=== PATIENT | male | born 1950 | race Caucasian/White ===

== ENCOUNTER 2020-09-15 10:18 | Outpatient (REF) | payer MEDICARE, SELFPAY ==
[2020-09-15 11:26] LABS: Estimated Average Glucose 140 mg/dL; Hemoglobin A1c % 6.5 %
[2020-09-15 11:54] LABS: Alanine Aminotransferase 18 U/L (0-40); Albumin Level 4.6 g/dL (3.5-5.0); Alkaline Phosphatase 60 U/L (39-117); Aspartate Amino Transferase 22 U/L (5-37); Bilirubin Direct 0.2 mg/dL (0.0-0.5); Bilirubin Total 0.5 mg/dL (0.0-1.0); Cholesterol 155 mg/dL; Glucose Fasting 133 mg/dL (60-99); HDL Cholesterol 47 mg/dL; LDL Cholesterol Calculated 69 mg/dl; Total Protein 7.1 g/dL (6.5-8.0); Triglycerides 199 mg/dL
[2020-09-15 13:39] LABS: Reflex LDLD? No
== END 2020-09-15 10:19 | disposition home or self-care (01) ==
LOC: HO.LNP 10:18
PROVIDERS: PCP Internal Medicine; Visit Provider Internal Medicine
DX: R73.03 Prediabetes (principal); E78.00 Pure hypercholesterolemia, unspecified
CPT/HCPCS: 80061; 80076; 82947; 83036

== ENCOUNTER 2020-10-14 12:19 | Outpatient (REF) | payer MEDICARE, SELFPAY ==
[2020-10-14 14:17] LABS: Blood Urea Nitrogen 10 mg/dL (9-16); Estimated Glomerular Filt Rate > 60
[2020-10-14 14:40] LABS: PSA,Total (Free>4and<10) 0.07 ng/mL (0.00-4.00)
== END 2020-10-14 12:20 | disposition home or self-care (01) ==
LOC: HO.10HDLNP 12:19
PROVIDERS: Visit Provider Internal Medicine
DX: Z12.5 Encounter for screening for malignant neoplasm of prostate (principal); R73.03 Prediabetes
CPT/HCPCS: 82565; 84153; 84520

== ENCOUNTER 2021-09-22 10:59 | Outpatient (REF) | payer MEDICARE, SELFPAY ==
[2021-09-22 11:04] LABS: MANUAL DIFF FLAG NO
[2021-09-22 11:21] LABS: Basophils Absolute Auto 0.1 X10*3/uL (0.0-0.2); Basophils Percent Auto 0.7 % (0-2); Eosinophils Absolute Auto 0.5 X10*3/uL (0.0-0.4); Eosinophils Percent Auto 4.6 % (0-4); Hematocrit 50.5 % (42.0-52.0); Hemoglobin 16.6 g/dl (14.0-18.0); Imm Gran Abs Auto 0.07 X10*3/uL (0.00-0.03); Imm Gran Pct Auto 0.7 % (0.0-0.4); Lymphocytes Percent Auto 30.6 % (20-40); Mean Corpuscular HGB Conc 32.9 g/dl (31.0-36.0); Mean Corpuscular Hemoglobin 30.5 pg (27.0-33.0); Mean Corpuscular Volume 92.7 fL (80.0-98.0); Mean Platelet Volume 12.1 fL (9.4-12.4); Monocytes Absolute Auto 0.9 X10*3/uL (0.1-1.2); Monocytes Percent Auto 9.5 % (2-11); Neutrophils Absolute Auto 5.2 x10*3/uL (2.0-8.3); Neutrophils Percent Auto 53.9 % (45-73); Platelet Count 178 X10*3/uL (160-400); Red Blood Count 5.45 X10*6/uL (4.60-5.80); Red Cell Distribution Width 15.1 % (11.0-16.0); White Blood Count 9.7 X10*3/uL (4.8-10.8)
[2021-09-22 11:38] LABS: Estimated Average Glucose 120 mg/dL; Hemoglobin A1c % 5.8 %
[2021-09-22 11:47] LABS: Alanine Aminotransferase 27 U/L (0-40); Albumin Level 4.7 g/dL (3.5-5.0); Alkaline Phosphatase 57 U/L (39-117); Anion Gap 17 (12-20); Aspartate Amino Transferase 30 U/L (5-37); Bilirubin Total 0.7 mg/dL (0.0-1.0); Blood Urea Nitrogen 15 mg/dL (9-16); Calcium 10.2 mg/dL (8.4-10.2); Carbon Dioxide 27 mmol/L (22-29); Chloride 101 mmol/L (96-108); Cholesterol 190 mg/dL; Estimated Glomerular Filt Rate > 60; Glucose Fasting 119 mg/dL (60-99); HDL Cholesterol 48 mg/dL; LDL Cholesterol Calculated 110 mg/dl; Potassium 4.5 mmol/L (3.3-5.1); Sodium 140 mmol/L (135-145); Total Protein 7.7 g/dL (6.5-8.0); Triglycerides 164 mg/dL
[2021-09-22 12:11] LABS: PSA,Total (Free>4and<10) 0.09 ng/mL (0.00-4.00)
[2021-09-22 12:24] LABS: Appearance Urine HAZY; Color Urine YELLOW; Glucose Urine UA NEG (NEG); Leukocyte Esterase Urine NEG (NEG); Nitrite Urine NEG (NEG); Urine Blood TRACE (NEG); Urine Ketones 5 MG/DL (NEG); Urine Protein 2+ MG/DL (NEG-TRACE)
[2021-09-22 12:50] LABS: Microalbum/Creatinine Ratio Ur 259.5 ug/mg cr
[2021-09-22 13:44] LABS: Granular Casts Urine 0-2 /LPF; Hyaline Casts Urine 0-2 /LPF; Mucus Urine 1+ /LPF
== END 2021-09-22 11:00 | disposition home or self-care (01) ==
LOC: HO.LNP 10:59
PROVIDERS: PCP Internal Medicine; Visit Provider Internal Medicine
DX: Z12.5 Encounter for screening for malignant neoplasm of prostate (principal); E78.00 Pure hypercholesterolemia, unspecified; E11.9 Type 2 diabetes mellitus without complications; I10 Essential (primary) hypertension
CPT/HCPCS: 80053; 80061; 81001; 81003; 82043; 83036; 84153; 85025

== ENCOUNTER 2022-03-26 10:34 | Outpatient (REF) | payer MEDICARE, SELFPAY ==
[2022-03-26 11:24] LABS: Alanine Aminotransferase 19 U/L (0-40); Albumin Level 4.8 g/dL (3.5-5.0); Alkaline Phosphatase 51 U/L (39-117); Aspartate Amino Transferase 24 U/L (5-37); Bilirubin Direct 0.2 mg/dL (0.0-0.5); Bilirubin Total 0.6 mg/dL (0.0-1.0); Cholesterol 166 mg/dL; Glucose Random 108 mg/dL (60-115); HDL Cholesterol 48 mg/dL; LDL Cholesterol Calculated 91 mg/dl; Total Protein 7.5 g/dL (6.5-8.0); Triglycerides 136 mg/dL
[2022-03-26 11:28] LABS: Estimated Average Glucose 114 mg/dL; Hemoglobin A1C 148.3577 umol/L; Hemoglobin A1c % 5.6 %
[2022-03-26 13:29] LABS: Reflex LDLD? No
== END 2022-03-26 10:35 | disposition home or self-care (01) ==
LOC: HO.LNP 10:34
PROVIDERS: Visit Provider Internal Medicine
DX: R73.03 Prediabetes (principal); E78.00 Pure hypercholesterolemia, unspecified
CPT/HCPCS: 80061; 80076; 82947; 83036

== ENCOUNTER 2022-07-02 10:46 | Outpatient (REF) | payer MEDICARE, SELFPAY ==
[2022-07-02 11:24] LABS: Alanine Aminotransferase 23 U/L (0-40); Albumin Level 4.7 g/dL (3.5-5.0); Alkaline Phosphatase 67 U/L (39-117); Aspartate Amino Transferase 27 U/L (5-37); Bilirubin Direct < 0.2 mg/dL (0.0-0.5); Bilirubin Total 0.5 mg/dL (0.0-1.0); Cholesterol 164 mg/dL; Glucose Fasting 93 mg/dL (60-99); HDL Cholesterol 48 mg/dL; LDL Cholesterol Calculated 90 mg/dl; Total Protein 6.9 g/dL (6.5-8.0); Triglycerides 132 mg/dL
[2022-07-02 11:46] LABS: Estimated Average Glucose 120 mg/dL; Hemoglobin A1C 161.5997 umol/L; Hemoglobin A1c % 5.8 %
[2022-07-02 15:17] LABS: Reflex LDLD? No
== END 2022-07-02 10:47 | disposition home or self-care (01) ==
LOC: HO.LNP 10:46
PROVIDERS: Visit Provider Internal Medicine
DX: E11.9 Type 2 diabetes mellitus without complications (principal); E78.00 Pure hypercholesterolemia, unspecified
CPT/HCPCS: 80061; 80076; 82947; 83036

== ENCOUNTER 2022-09-24 11:19 | Outpatient (REF) | payer MEDICARE, SELFPAY ==
[2022-09-24 11:25] LABS: MANUAL DIFF FLAG NO
[2022-09-24 11:31] LABS: Basophils Absolute Auto 0.1 X10*3/uL (0.0-0.2); Basophils Percent Auto 1.1 % (0-2); Eosinophils Absolute Auto 0.5 X10*3/uL (0.0-0.4); Eosinophils Percent Auto 6.5 % (0-4); Hematocrit 46.5 % (42.0-52.0); Hemoglobin 15.4 g/dl (14.0-18.0); Imm Gran Pct Auto 1.2 % (0.0-0.4); Lymphocytes Absolute Auto 2.4 X10*3/uL (1.2-4.9); Lymphocytes Percent Auto 28.7 % (20-40); Mean Corpuscular HGB Conc 33.1 g/dl (31.0-36.0); Mean Corpuscular Hemoglobin 31.4 pg (27.0-33.0); Mean Corpuscular Volume 94.7 fL (80.0-98.0); Mean Platelet Volume 11.8 fL (9.4-12.4); Monocytes Percent Auto 12.3 % (2-11); Neutrophils Absolute Auto 4.2 x10*3/uL (2.0-8.3); Neutrophils Percent Auto 50.2 % (45-73); Platelet Count 172 X10*3/uL (160-400); Red Blood Count 4.91 X10*6/uL (4.60-5.80); Red Cell Distribution Width 14.6 % (11.0-16.0); White Blood Count 8.4 X10*3/uL (4.8-10.8)
[2022-09-24 11:34] LABS: Appearance Urine Clear; Color Urine Dark Yellow; Glucose Urine UA Negative (Negative); Leukocyte Esterase Urine Negative (Negative); Nitrite Urine Negative (Negative); PH 5.5 (5.0-9.0); Urine Blood Negative (Negative); Urine Ketones Trace mg/dL (Negative); Urine Protein Negative (Neg-Trace)
[2022-09-24 11:48] LABS: Alanine Aminotransferase 27 U/L (0-40); Albumin Level 4.7 g/dL (3.5-5.0); Alkaline Phosphatase 63 U/L (39-117); Anion Gap 14 (12-20); Aspartate Amino Transferase 24 U/L (5-37); Bilirubin Total 0.7 mg/dL (0.0-1.0); Blood Urea Nitrogen 27 mg/dL (9-16); Calcium 9.8 mg/dL (8.4-10.2); Carbon Dioxide 27 mmol/L (22-29); Chloride 104 mmol/L (96-108); Cholesterol 158 mg/dL; Estimated Glomerular Filt Rate > 60; Glucose Fasting 92 mg/dL (60-99); HDL Cholesterol 41 mg/dL; LDL Cholesterol Calculated 90 mg/dl; Potassium 4.9 mmol/L (3.3-5.1); Sodium 140 mmol/L (135-145); Triglycerides 137 mg/dL
[2022-09-24 11:50] LABS: Bacteria Urine None Seen (None Seen); Estimated Average Glucose 120 mg/dL; Hemoglobin A1c % 5.8 %; RBC Urine 0-2 /HPF (0-2); Squamous Epithelial Cell Urine 0-2 /HPF (0-2); WBC Urine 0-5 /HPF (0-5)
[2022-09-24 12:35] LABS: Creatinine Urine 157.95 mg/dL; Microalbum/Creatinine Ratio Ur 10.1 ug/mg cr
== END 2022-09-24 11:20 | disposition home or self-care (01) ==
LOC: HO.LNP 11:19
PROVIDERS: PCP Internal Medicine; Visit Provider Internal Medicine
DX: E78.00 Pure hypercholesterolemia, unspecified (principal); E11.9 Type 2 diabetes mellitus without complications; I10 Essential (primary) hypertension; Z12.5 Encounter for screening for malignant neoplasm of prostate
CPT/HCPCS: 80053; 80061; 81001; 82043; 83036; 84153; 85025

== ENCOUNTER 2022-12-02 11:12 | Outpatient (REF) | payer MEDICARE, SELFPAY ==
[2022-12-02 13:34] LABS: Blood Urea Nitrogen 18 mg/dL (9-16); Estimated Glomerular Filt Rate > 60
== END 2022-12-02 11:13 | disposition home or self-care (01) ==
LOC: HO.LNP 11:12
PROVIDERS: Visit Provider Internal Medicine
DX: R79.9 Abnormal finding of blood chemistry, unspecified (principal)
CPT/HCPCS: 82565; 84520

== ENCOUNTER 2023-04-07 10:22 | Outpatient (REF) | payer MEDICARE, SELFPAY ==
[2023-04-07 10:50] LABS: Estimated Average Glucose 123 mg/dL; Hemoglobin A1c % 5.9 % (<6.0)
[2023-04-07 11:09] LABS: Alanine Aminotransferase 24 U/L (0-40); Albumin Level 4.6 g/dL (3.5-5.0); Alkaline Phosphatase 67 U/L (39-117); Aspartate Amino Transferase 26 U/L (5-37); Bilirubin Direct 0.3 mg/dL (0.0-0.5); Bilirubin Total 0.6 mg/dL (0.0-1.0); Glucose Fasting 109 mg/dL (60-99); Total Protein 7.4 g/dL (6.5-8.0)
[2023-04-07 11:10] LABS: Cholesterol 147 mg/dL (<200); HDL Cholesterol 40 mg/dL (>40); LDL Cholesterol Calculated 70 mg/dL (<100); Triglycerides 187 mg/dL (<150)
[2023-04-07 11:23] LABS: Reflex LDLD? No
== END 2023-04-07 10:23 | disposition home or self-care (01) ==
LOC: HO.LNP 10:22
PROVIDERS: Visit Provider Internal Medicine
DX: R73.03 Prediabetes (principal); E78.00 Pure hypercholesterolemia, unspecified
CPT/HCPCS: 80061; 80076; 82947; 83036

== ENCOUNTER 2023-09-29 11:43 | Outpatient (REF) | payer MEDICARE, SELFPAY ==
[2023-09-29 11:49] LABS: MANUAL DIFF FLAG NO
[2023-09-29 12:10] LABS: Appearance Urine Clear; Color Urine Dark Yellow; Glucose Urine UA Negative (Negative); Leukocyte Esterase Urine Negative (Negative); Nitrite Urine Negative (Negative); PH 5.5 (5.0-9.0); Specific Gravity - Urine 1.025 (1.005-1.025); Urine Blood Negative (Negative); Urine Ketones Negative (Negative); Urine Protein Negative (Neg-Trace)
[2023-09-29 12:13] LABS: Bacteria Urine None Seen (None Seen); RBC Urine 0-2 /HPF (0-2); Squamous Epithelial Cell Urine 0-2 /HPF (0-2); WBC Urine 0-5 /HPF (0-5)
[2023-09-29 12:30] LABS: Basophils Absolute Auto 0.1 X10*3/uL (0.0-0.2); Basophils Percent Auto 1.1 % (0-2); Eosinophils Absolute Auto 0.7 X10*3/uL (0.0-0.4); Eosinophils Percent Auto 8.8 % (0-4); Hematocrit 45.5 % (42.0-52.0); Imm Gran Abs Auto 0.06 X10*3/uL (0.00-0.03); Imm Gran Pct Auto 0.8 % (0.0-0.4); Lymphocytes Absolute Auto 2.3 X10*3/uL (1.2-4.9); Lymphocytes Percent Auto 29.6 % (20-40); Mean Corpuscular Hemoglobin 31.3 pg (27.0-33.0); Mean Corpuscular Volume 94.8 fL (80.0-98.0); Mean Platelet Volume 11.5 fL (9.4-12.4); Monocytes Absolute Auto 0.8 X10*3/uL (0.1-1.2); Monocytes Percent Auto 10.7 % (2-11); Neutrophils Absolute Auto 3.9 x10*3/uL (2.0-8.3); Platelet Count 184 X10*3/uL (160-400); Red Cell Distribution Width 14.6 % (11.0-16.0); White Blood Count 7.9 X10*3/uL (4.8-10.8)
[2023-09-29 12:38] LABS: Estimated Average Glucose 131 mg/dL; Hemoglobin A1c % 6.2 % (<6.0)
[2023-09-29 12:43] LABS: Alanine Aminotransferase 25 U/L (0-40); Albumin Level 4.5 g/dL (3.5-5.0); Alkaline Phosphatase 70 U/L (39-117); Anion Gap 16 (12-20); Aspartate Amino Transferase 29 U/L (5-37); Bilirubin Total 0.5 mg/dL (0.0-1.0); Blood Urea Nitrogen 17 mg/dL (9-16); Calcium 10.1 mg/dL (8.4-10.2); Carbon Dioxide 24 mmol/L (22-29); Chloride 106 mmol/L (96-108); Cholesterol 146 mg/dL (<200); Estimated Glomerular Filt Rate > 60; Glucose Random 119 mg/dL (60-115); HDL Cholesterol 44 mg/dL (>40); LDL Cholesterol Calculated 69 mg/dL (<100); Potassium 4.5 mmol/L (3.3-5.1); Sodium 141 mmol/L (135-145); Total Protein 7.3 g/dL (6.5-8.0); Triglycerides 169 mg/dL (<150)
[2023-09-29 12:48] LABS: Creatinine Urine 161.48 mg/dL; Microalbum/Creatinine Ratio Ur 4.9 ug/mg cr (<30)
[2023-09-29 12:57] LABS: PSA,Total (Free>4and<10) < 0.10 ng/mL (0.00-4.00)
== END 2023-09-29 11:44 | disposition home or self-care (01) ==
LOC: HO.LNP 11:43
PROVIDERS: Visit Provider Internal Medicine
DX: E11.9 Type 2 diabetes mellitus without complications (principal); I10 Essential (primary) hypertension; E78.00 Pure hypercholesterolemia, unspecified; Z12.5 Encounter for screening for malignant neoplasm of prostate
CPT/HCPCS: 80053; 80061; 81001; 82043; 82570; 83036; 84153; 85025

== ENCOUNTER 2024-04-06 10:48 | Outpatient (REF) | payer MEDICARE, SELFPAY ==
[2024-04-06 12:13] LABS: Estimated Average Glucose 123 mg/dL; Hemoglobin A1C 195.1834 umol/L; Hemoglobin A1c % 5.9 % (<6.0); Total Hemoglobin (HGBA1C) 4721.5614 umol/L
[2024-04-06 12:16] LABS: Alanine Aminotransferase 36 U/L (0-40); Albumin Level 4.6 g/dL (3.5-5.0); Aspartate Amino Transferase 46 U/L (5-37); Bilirubin Direct 0.2 mg/dL (0.0-0.5); Bilirubin Total 0.5 mg/dL (0.0-1.0); Cholesterol 142 mg/dL (<200); Glucose Fasting 115 mg/dL (60-99); HDL Cholesterol 45 mg/dL (>40); LDL Cholesterol Calculated 67 mg/dL (<100); Total Protein 7.3 g/dL (6.5-8.0); Triglycerides 150 mg/dL (<150)
[2024-04-06 12:39] LABS: Alkaline Phosphatase 81 U/L (39-117)
[2024-04-06 13:35] LABS: Reflex LDLD? No
== END 2024-04-06 10:49 | disposition home or self-care (01) ==
LOC: HO.LNP 10:48
PROVIDERS: Visit Provider Internal Medicine
DX: R73.09 Other abnormal glucose (principal); E78.00 Pure hypercholesterolemia, unspecified
CPT/HCPCS: 80061; 80076; 82947; 83036

== ENCOUNTER 2024-10-02 10:44 | Outpatient (REF) | payer MEDICARE, SELFPAY ==
[2024-10-02 10:48] LABS: MANUAL DIFF FLAG NO
[2024-10-02 11:04] LABS: Appearance Urine Clear; Color Urine Dark Yellow; Glucose Urine UA Negative (Negative); Leukocyte Esterase Urine Negative (Negative); Nitrite Urine Negative (Negative); PH 5.5 (5.0-9.0); Specific Gravity - Urine 1.025 (1.005-1.025); Urine Blood Negative (Negative); Urine Ketones Trace mg/dL (Negative); Urine Protein Negative (Neg-Trace)
[2024-10-02 11:05] LABS: Basophils Absolute Auto 0.1 X10*3/uL (0.0-0.2); Eosinophils Absolute Auto 0.5 X10*3/uL (0.0-0.4); Eosinophils Percent Auto 5.4 % (0-4); Hematocrit 45.8 % (42.0-52.0); Hemoglobin 15.2 g/dl (14.0-18.0); Imm Gran Pct Auto 1.1 % (0.0-0.4); Lymphocytes Absolute Auto 2.8 X10*3/uL (1.2-4.9); Lymphocytes Percent Auto 29.5 % (20-40); Mean Corpuscular HGB Conc 33.2 g/dl (31.0-36.0); Mean Corpuscular Hemoglobin 31.1 pg (27.0-33.0); Mean Corpuscular Volume 93.7 fL (80.0-98.0); Mean Platelet Volume 11.3 fL (9.4-12.4); Monocytes Percent Auto 10.7 % (2-11); Neutrophils Absolute Auto 4.9 x10*3/uL (2.0-8.3); Neutrophils Percent Auto 52.3 % (45-73); Platelet Count 167 X10*3/uL (160-400); Red Blood Count 4.89 X10*6/uL (4.60-5.80); Red Cell Distribution Width 14.3 % (11.0-16.0); White Blood Count 9.4 X10*3/uL (4.8-10.8)
[2024-10-02 11:20] LABS: Estimated Average Glucose 128 mg/dL; Hemoglobin A1C 166.6116 umol/L; Hemoglobin A1c % 6.1 % (<6.0); Total Hemoglobin (HGBA1C) 3890.5417 umol/L
[2024-10-02 11:24] LABS: Bacteria Urine None Seen (None Seen); Hyaline Casts Urine 0-2 /LPF (0-2); RBC Urine 0-2 /HPF (0-2); Squamous Epithelial Cell Urine 0-2 /HPF (0-2); WBC Urine 0-5 /HPF (0-5)
[2024-10-02 11:56] LABS: Alanine Aminotransferase 30 U/L (0-40); Albumin Level 4.6 g/dL (3.5-5.0); Anion Gap 16 (12-20); Aspartate Amino Transferase 51 U/L (5-37); Bilirubin Total 0.5 mg/dL (0.0-1.0); Blood Urea Nitrogen 16 mg/dL (9-16); Calcium 9.8 mg/dL (8.4-10.2); Carbon Dioxide 26 mmol/L (22-29); Chloride 106 mmol/L (96-108); Cholesterol 154 mg/dL (<200); Estimated Glomerular Filt Rate > 60; Glucose Fasting 116 mg/dL (60-99); HDL Cholesterol 48 mg/dL (>40); LDL Cholesterol Calculated 66 mg/dL (<100); Potassium 4.6 mmol/L (3.3-5.1); Sodium 143 mmol/L (135-145); Total Protein 7.3 g/dL (6.5-8.0); Triglycerides 201 mg/dL (<150)
--- OUTSIDE RECORDS SUMMARY | 2024-10-02 12:08 | XMS_ITS ---
Author Organization Deuce Lyon MD Address [address] [place] [phone] Care Team Providers Care Spring Tester Name Role Phone Sonali Deuce Primary Care Provider REASON FOR VISIT RF Doxy Medications Medication SIG (Take, Route, Frequency, Duration) Notes Start Date End Date Status Doxycycline Hyclate 100 MG 1 capsule Ora lly Twice a day for 1 days 10/06/2023 Active Encounters Encounter Location Date Provider Diagnosis Deuce Lyon MD [address] [place] [phone] 10/02/2024 Deuce Lyon Bitten or stung by nonvenomous insect and other nonvenomous arthropods, initial encounter W57.XXXA Assessments Encounter Date Diagnosis (ICD Code) Assessment Notes Treatment Notes Treatment Clinical Notes Section Notes 10/02/2024 Bitten or stung by nonvenomous insect and other nonvenomous arthropods, initial encounter (ICD-10 - W57.XXXA) Plan Of Treatment Medication Medication Name Sig Start Date Stop Date Notes Doxycycline Hyclate 100 MG 1 capsule Ora lly Twice a day for 1 days 10/06/2023 Next Appt Details Provider Name:Deucebrittani Luis ier, 10/09/2024 01:30:00 PM, [address] [place] [address], [address], [place], [place], [phone], Progress Notes * Shashank ARROYO WDOB:[birth year] (74 yo M)Acc No.[id number]:10/02/2024 Patient:?Shashank ARROYO W :1950???Age:74 Y???Sex:Male Address:[address] [place] [address], [place] [address] * Refills? Refill Doxycycline Hyclate Capsule, 100 MG, Orally, 2 Capsule, 1 capsule, Twice a day, 1 days, Refills=5 * true * Date:? Generated for Ricco peck/Manjinder/eTransmitting on:?10/02/2024 12:08 PM EDT
--- OUTSIDE RECORDS SUMMARY | 2024-10-02 12:08 | XMS_ITS ---
Author Organization Deuce Lyon MD Address [address] [place] [phone] Care Team Providers Care Photographer Scientific Name Role Phone VernellDeuce mays Primary Care Provider Results Component Value Reference Range Notes Complete Blood Count Auto Di ff (Not yet reviewed by provider) Interpretation: Performing Lab:[facility], [address] [place] [phone] Notes/Report: White Blood Count 9.4 4.8-10.8 X10*3/uL Red Blood Count 4.89 4.60-5.80 X10*6/uL Hemoglobin 15.2 14.0-18.0 g/dl Hematocrit 45.8 42.0-52.0 % Mean Corpuscular Volume 93.7 80.0-98.0 fL Mean Corpuscular Hemoglobin 31.1 27.0-33.0 pg Mean Corpuscular HGB Conc 33.2 31.0-36.0 g/dl Red Cell Distribution Width 14.3 11.0-16.0 % Platelet Count 167 160-400 X10*3/uL Mean Platelet Volume 11.3 9.4-12.4 fL Neutrophils Percent Auto 52.3 45-73 % Imm Gran Pct Auto 1.1 0.0-0.4 % Lymphocytes Percent Auto 29.5 20-40 % Monocytes Percent Auto 10.7 2-11 % Eosinophils Percent Auto 5.4 0-4 % Basophils Percent Auto 1.0 0-2 % NRBC Pct Auto 0.0 0.0-0.2 /100WBC Neutrophils Absolute Auto 4.9 2.0-8.3 x10*3/u L Imm Gran Abs Auto 0.10 0.00-0.03 X10*3/uL Lymphocytes Absolute Auto 2.8 1.2-4.9 X10*3/u L Monocytes Absolute Auto 1.0 0.1-1.2 X10*3/uL Eosinophils Absolute Auto 0.5 0.0-0.4 X10*3/u L Basophils Absolute Auto 0.1 0.0-0.2 X10*3/uL NRBC Abs Auto 0.000 0.0-0.012 X10*3/uL PSA,Total (Free>4and<10) (No t yet reviewed by provider) Interpretation: Performing Lab:[address] [phone] Notes/Report: PSA,Total (Free>4and<10) 0.10 0.00-4.00 ng/mL A Free PSA was not performed: The percentage of Free PSA can be used to enhance the differentiation of prostate cancer from benign prostatic disease in subjects whose PSA levels are between 4.0 and 10.0 ng/mL. For subjects whose PSA levels are below 4.0 or above 10.0 ng/mL, the risk of prostate cancer is determined on the basis of the PSA alone. Therefore the % Free PSA is recommended only for those subjects whose PSA levels are between 4.0 and 10.0 ng/mL. PSA methodology: Renee Alinity i Chemiluminescent Microparticle Immunoassay (CMIA) Hemoglobin A1c (Not yet revi ewed by provider) Interpretation: Performing Lab:[address] [phone] Notes/Report: Hemoglobin A1c % 6.1 <6.0 % Hemoglobin A1C Reference Range Adults: 4.8 - 6.0 % Non diabetic: < 6.0 % Goal: < 7.0 % Additional Action Suggested: > 8.0 % Note: Hemoglobin A1c results are invalid for patients with abnormal amounts of HbF. Blood transfusions may impact the HbA1c concentration in the patient sample. Estimated Average Glucose 128 eAG = Estimated average glucose which is %A1C expressed as average glucose, using the formula of the I5J-Ulveqdx Average Glucose study (ADAG), Diabetes Care, Vol.31,#8, 2007 UA ClnCatch+Micro w/rflx Cul t (Not yet reviewed by provider) Interpretation: Performing Lab:[facility], [address] [place] [phone] Notes/Report: Urine, Clean Catch Color Urine Dark Yellow Appearance Urine Clear PH 5.5 5.0-9.0 Glucose Urine UA Negative Negative mg/dL Urine Blood Negative Negative Specific [place] - Urine 1.025 1.005-1.025 Urine Protein Negative Neg-Trace mg/dL Urine Ketones Trace Negative mg/dL Nitrite Urine Negative Negative Leukocyte Esterase Urine Negative Negative RBC Urine 0-2 0-2 /HPF WBC Urine 0-5 0-5 /HPF Squamous Epithelial Cell Urine 0-2 0-2 /HPF Bacteria Urine None Seen None Seen Hyaline Casts Urine 0-2 0-2 /LPF REASON FOR VISIT FASTING LABS Encounters Encounter Location Date Provider Diagnosis Deuce Lyon MD [address] [place] [address] [address] [place], [place] [phone] 10/02/2024 Deuec Lyon Prediabetes R73.09 ; Pure hypercholesterolemia E78.00 ; Type 2 diabetes mellitus without complication, without long-term current use of insulin E11.9 and Essential hypertension I10 Assessments Encounter Date Diagnosis (ICD Code) Assessment Notes Treatment Notes Treatment Clinical Notes Section Notes 10/02/2024 Prediabetes (ICD-10 - R73.09) 10/02/2024 Pure hypercholesterolemia (ICD-10 - E78.00) 10/02/2024 Type 2 diabetes suni itus without complication, without long-term current use of insulin (ICD-10 - E11.9) 10/02/2024 Essential hypertensi on (ICD-10 - I10) Plan Of Treatment Pending Test Test Name Order Date Complete Blood Count Auto Diff [facility] [place] [facility]. Panel Fast Lipid Panel 10/02/2024 PSA,Total (Free>4and<10) 10/02/2024 Microalbumin, Random 10/02/2024 Hemoglobin A1c 10/02/2024 UA ClnCatch+Micro w/rflx Cult 10/02/2024 Next Appt Details Provider Name:Deuce Luis ier, 10/09/2024 01:30:00 PM, [address] [facility], [address], [place], [place], [phone], Progress Notes * BARIShashank DORMAN WDOB:[birth year] (74 yo M)Acc No.[id number]:10/02/2024 Progress Note Patient:?Shashank CODY Provider:?Deuce Lyon MD :1950???Age:74 Y???Sex:Male Bert e:10/02/2024 Address:[address] [place], [place] [phone] Subjective: * Chief Complaints: * ???1. FASTING LABS. * Medical History:? Objective: * Vitals:? Assessment: * Assessment: 1.?Prediabetes - R73.09 (Sandra jossy)???2.?Pure hypercholesterolemia - E78.00???3.?Type 2 diabetes mellitus without complication, without long-term current use of insulin - E11.9???4.?Essential hypertension - I10??? Plan: * Treatment: 2.?Pure hypercholesterolemia ?LAB: Complete Blood Count Auto Diff (Collection Date & Time - 10/02/2024 07:45 AM) ?LAB: [facility]. Panel Fast ?LAB: Lipid Panel ?LAB: PSA,Total (Free>4and<10) (Collection Date & Time - 10/02/2024 07:45 AM) ?LAB: Microalbumin, Random ?LAB: Hemoglobin A1c (Collection Date & Time - 10/02/2024 07:45 AM) ?LAB: UA ClnCatch+Micro w/rflx Cult (Collection Date & Time - 10/02/2024 07:45 AM) 3.?Type 2 diabetes mellitus without complication, without long-term current use of insulin?LAB: Complete Blood Count Auto Diff (Collection Date & Time - 10/02/2024 07:45 AM) ?LAB: [facility]. Panel Fast ?LAB: Lipid Panel ?LAB: PSA,Total (Free>4and<10) (Collection Date & Time - 10/02/2024 07:45 AM) ?LAB: Microalbumin, Random ?LAB: Hemoglobin A1c (Collection Date & Time - 10/02/2024 07:45 AM) ?LAB: UA ClnCatch+Micro w/rflx Cult (Collection Date & Time - 10/02/2024 07:45 AM) 4.?Essential hypertension?LAB: Complete Blood Count Auto Diff (Collection Date & Time - 10/02/2024 07:45 AM) ?LAB: [facility]. Panel Fast ?LAB: Lipid Panel ?LAB: PSA,Total (Free>4and<10) (Collection Date & Time - 10/02/2024 07:45 AM) ?LAB: Microalbumin, Random ?LAB: Hemoglobin A1c (Collection Date & Time - 10/02/2024 07:45 AM) ?LAB: UA ClnCatch+Micro w/rflx Cult (Collection Date & Time - 10/02/2024 07:45 AM) * Procedure Codes:?32864 VENIP UNCT, ROUTINE* * * The named appointment provid er may or may not be the originator of this progress note, and it is not deemed complete until electronically signed by the appointment provider. Sign off status: Pending * Provider:?Deuce Lyon MD Date:?0 10/02/2024 Generated for Leloi ng/Faxing/eTransmitting on:?10/02/2024 12:08 PM EDT
--- OUTSIDE RECORDS SUMMARY | 2024-10-02 12:08 | XMS_ITS | Patient Health Record ---
Author Organization Deuce Lyon MD Address [address] [place], [place] [phone] Care Team Providers Care Cosmetic Assembler Name Role Phone Sonali Deuce Primary Care Provider [phone] Allergies Allergen (clinical drug ingredient) Drug/Non Drug Allergy documented on EMR Reaction Allergy Type Onset Date Status metformin Metformin diarrhea Drug Allergy Active Levaquin nausea and felt faint Drug Allergy Active Results Component Value Reference Range Notes Liver Panel Reviewed date:04/07/2024 07:32:40 PM Interpretation: Performing Lab:[facility], [address] [place] [phone] Notes/Report: Bilirubin Total 0.5 0.0-1.0 mg/dL Bilirubin Direct 0.2 0.0-0.5 mg/dL Aspartate Amino Transferase 46 5-37 U/L Alanine Aminotransferase 36 0-40 U/L Total Protein 7.3 6.5-8.0 g/dL Albumin Level 4.6 3.5-5.0 g/dL Alkaline Phosphatase 81 39-117 U/L Glucose Fasting Reviewed date:04/07/2024 07:32:29 PM Interpretation: Performing Lab:[address] [phone] Notes/Report: Glucose Fasting 115 60-99 mg/dL A fasting glucose from 100-125 mg/dl is considered impaired (pre-diabetes). Lipid Panel with Reflex Reviewed date:04/06/2024 01:47:18 PM Interpretation: Performing Lab:[facility], [address] [place] [phone] Notes/Report: Triglycerides 150 <150 mg/dL Desirable Triglyceride: less than 150 mg/dL Borderline High Triglyceride 150-199 mg/dL High Triglyceride: 200-499 mg/dL Very High Triglyceride: greater than or equal to 5OO mg/dL Cholesterol 142 <200 mg/dL Desirable Cholesterol: less than 200 mg/dL Borderline High Cholesterol: 200-239 mg/dL High Cholesterol: greater than 239 mg/dL LDL Cholesterol Calculated 67 <100 mg/dL Desirable LDL: less than 100 mg/dL Near Optimal/Above Optimal LDL: 110-129 mg/dL Borderline High LDL: 130-159 mg/dL High LDL: 160-189 mg/dL Very High LDL: greater than or equal to 190 mg/dL HDL Cholesterol 45 >40 mg/dL Desirable HDL: greater than 40 mg/dL Note: This HDL assay may give artificially low results in patients with liver disease. Hemoglobin A1c Reviewed date:04/06/2024 12:17:53 PM Interpretation: Performing Lab:[address] [phone] Notes/Report: Hemoglobin A1c % 5.9 <6.0 % Hemoglobin A1C Reference Range Adults: 4.8 - 6.0 % Non diabetic: < 6.0 % Goal: < 7.0 % Additional Action Suggested: > 8.0 % Note: Hemoglobin A1c results are invalid for patients with abnormal amounts of HbF. Blood transfusions may impact the HbA1c concentration in the patient sample. Estimated Average Glucose 123 eAG = Estimated average glucose which is %A1C expressed as average glucose, using the formula of the L0G-Llkmaer Average Glucose study (ADAG), Diabetes Care, Vol.31,#8, 2007 Complete Blood Count Auto Di ff (Not yet reviewed by provider) Interpretation: Performing Lab:[facility], [address] [place] [phone] Notes/Report: White Blood Count 9.4 4.8-10.8 X10*3/uL [...] t yet reviewed by provider) Interpretation: Performing Lab:[facility], [address] [place] [phone] Notes/Report: PSA,Total (Free>4and<10) 0.10 0.00-4.00 ng/mL A [...] yet revi ewed by provider) Interpretation: Performing Lab:[address] [phone] Notes/Report: Hemoglobin A1c % 6.1 <6.0 % [...] average glucose, using the formula of the B6S-Slsvijy Average Glucose study (ADAG), Diabetes Care, Vol.31,#8, Dec. 2007 UA ClnCatch+Micro w/rflx Cul t (Not yet reviewed by provider) Interpretation: Performing Lab:[facility], [address] [place] [phone] Notes/Report: Urine, Clean Catch Color Urine Dark Yellow Appearance Urine Clear PH 5.5 5.0-9.0 Glucose Urine UA Negative Negative mg/dL Urine Blood Negative Negative Specific [place] - Urine 1.025 1.005-1.025 Urine Protein Negative Neg-Trace mg/dL Urine Ketones Trace Negative mg/dL Nitrite Urine Negative Negative Leukocyte Esterase Urine Negative Negative RBC Urine 0-2 0-2 /HPF WBC Urine 0-5 0-5 /HPF Squamous Epithelial Cell Urine 0-2 0-2 /HPF Bacteria Urine None Seen None Seen Hyaline Casts Urine 0-2 0-2 /LPF Hold Gold Reviewed date:04/06/2024 12:17:44 PM Interpretation: Performing Lab:[facility], [address] [place] [phone] Notes/Report: Hold Gold See Note Specimen held untested for 24 hours; Call to request Chemistry testing. Reason For Referral No Information Medications Medication SIG (Take, Route, Frequency, Duration) Notes Start Date End Date Status Atorvastatin Calcium 40 MG TAKE 1 TABLET ONCE DAILY for 90 Active Doxycycline Hyclate 100 MG 1 capsule Orally Twice a day for 1 days 10/06/2023 Active Albuterol Sulfate 0.63 MG/3ML as directed Inhalation every 6 hrs for 14 days 12/05/2018 Not-Taki ng Align 4 MG as directed Orally Active Lisinopril 10 MG TAKE 1 TABLET BY RBITNEY TH EVERY DAY for 90 Active Doxycycline Hyclate 20 MG 1 tablet Orall y Twice a day Not-Taking Celecoxib 200 MG TAKE 1 CAPSULE EVERY OTHER DAY for 90 Active Omeprazole 20MG TAKE 1 CAPSULE ONCE DAILY Active Gabapentin 300 MG TAKE 1 CAPSULE TWICE DAILY for 90 Active Albuterol Sulfate (2.5 MG/3ML) 0.083% 3 ml Inhalation Three times a day for 14 days 02/25/2017 Not-Taki ng Clobetasol Propionate 0.05 % 1 application to affected area Externally Twice a day for 30 days 12/30/2014 Active LORazepam 0.5 MG 1 tablet as needed Orally Twice a day 06/16/2015 Not-Taking Albuterol Sulfate HFA 108 (90 Base) MCG/ACT INHALE 2 PUFFS INTO THE LUNGS EVERY 4 HOURS NEEDED FOR 90 DAYS for 30 Active Immunizations Vaccine Route Administration Date Status Comme nts Flu Vaccine IM Intramuscular 04/24/2013 Administered zFluzone Quadrivalent IM Intramuscular 04/24/2015 Administ ered Fluarix Quadrivalent IM Intramuscular 07/07/2017 Administe red Fluarix Quadrivalent IM Intramuscular 02/07/2018 Administe red Fluarix Quadrivalent IM Intramuscular 02/12/2019 Administe red Influenza High Dose IM Intramuscular 01/25/2020 Administer ed Covid Vaccine Unknown 07/25/2020 Administered Pfizer CV S Covid Vaccine Unknown 08/15/2020 Administered Pfizer SARS-COV-2 Pfizer Unknown 03/05/2021 Administered [facility] Influenza High Dose IM Intramuscular 03/23/2021 Administer ed SARS-COV-2 Pfizer Unknown 03/05/2021 Administered Influenza High Dose IM Intramuscular 02/19/2022 Administer ed SARS-COV-2 Moderna Unknown 03/23/2022 Administered [facility] TDaP Unknown 03/23/2022 Administered [facility] Fluarix Quadrivalent Unknown 02/15/2023 Administered [facility] SARS-COV-2 Moderna Unknown 02/27/2023 Administered [facility] RSV Unknown 02/15/2023 Administered [facility] PPSV23 (Pnemovax) Unknown 06/16/2015 Refused Prevnar 13 Unknown 08/08/2018 Refused PPSV23 (Pnemovax) Unknown 12/25/2019 Refused Prevnar 13 Unknown 12/25/2019 Refused Social History Tobacco Use: Social History Observation Description Date Details (start date - stop date) Former Smoker NA - NA Tobacco Use/Smoking Question Answer Notes Patient is a former smoker How long has it been since y ou last smoked? 5-10 years Additional Findings: Tobacco Non-User Fo rmer smoker, currently using no form of tobacco Alcohol Screen Question Answer Notes Did you have a drink contain ing alcohol in the past year? Yes How often did you have a dri nk containing alcohol in the past year? Monthly or less (1 point) How many drinks did you have on a typical day when you were drinking in the past year? 1 or 2 drinks (0 point) How often did you have 6 or more drinks on one occasion in the past year? Never (0 point) Points 1 Interpretation Negative Section Notes: pt smokes cigars pt smokes cigars pt smokes cigars 3 a day no t cigarettes(02-19-2020) former smoker stopped cigar2017 pt smokes cigars pt smokes cigars pt smokes cigars pt smokes cigars pt smokes cigars pt smokes cigars 3 a day pt smokes cigars 3 a day pt smokes cigars 3 a day pt smokes cigars 3 a day pt smokes cigars 3 a day pt smokes cigars 3 a day pt smokes cigars 3 a day not cigarettes pt smokes cigars 3 a day not cigarettes pt smokes cigars 3 a day not cigarettes pt smokes cigars 3 a day not cigarettes pt smokes cigars 3 a day not cigarettes(02-19-2020) pt smokes cigars 3 a day not cigarettes(02-19-2020) pt smokes cigars 3 a day not cigarettes(02-19-2020) pt smokes cigars 3 a day not cigarettes(02-19-2020) pt smokes cigars 3 a day not cigarettes(02-19-2020) pt smokes cigars 3 a day not cigarettes(02-19-2020) pt smokes cigars 3 a day not cigarettes(02-19-2020) former smoker stopped cigars 2017 Problems Problem Type SNOMED Code ICD Code Onset Dates Problem Status W/U Status Risk Notes Problem 120107150 Reflux esophagit is (K21.00) Active confirmed Problem 4400401 Arthritis (M19.90) Active confirmed Problem 09837314 Essential hypert ension (I10) Active confirmed Problem 221029473 Mild intermitten t asthma without complication (J45.20) Active confirmed Problem 5041930 Prediabetes (R73.09) Active confirmed Problem 798946418 Cervical disc di sease (M50.90) Active confirmed Problem 12208636 Intrinsic eczema (L20.84) Active confirmed Problem 892118881 History of hemor rhoids (Z87.19) Active confirmed Problem 945794448 Pure hypercholesterolemia (E78.00) Active confirmed Problem 072339505 BMI 37.0-37.9, a dult (Z68.37) Active confirmed Problem 333826873 Type 2 diabetes mellitus without complication, without long-term current use of insulin (E11.9) Active confirmed Problem 50787302 Gingivitis (K05.10) Active confirmed Vital Signs Blood pressure diastolic 80 mm Hg 04/12/2024 Height 63 in 04/12/2024 Blood pressure systolic 148 mm Hg 04/12/2024 Weight 218 lbs 04/12/2024 BMI 38.61 kg/m2 04/12/2024 Encounters Encounter Location Date Provider Diagnosis Deuce Lyon MD [address] [place] [id number] 04/06/2024 Deuce Matter Prediabetes R73.09 a nd Pure hypercholesterolemia E78.00 Deuce Lyon MD [address] [place] [id number] 10/02/2024 Deuce Lyon Prediabetes R73.09 ; Pure hypercholesterolemia E78.00 ; Type 2 diabetes mellitus without complication, without long-term current use of insulin E11.9 and Essential hypertension I10 Deuce Lyon MD [address] [place] [phone] 10/06/2023 Deuce Lyon Mild intermittent as thma without complication J45.20 ; Pure hypercholesterolemia E78.00 ; Insect bite (nonvenomous) of abdominal wall, initial encounter S30.861A ; Bitten or stung by nonvenomous insect and other nonvenomous arthropods, initial encounter W57.XXXA ; Type 2 diabetes mellitus without complication, without long-term current use of insulin E11.9 ; Essential hypertension I10 ; Reflux esophagitis K21.00 and Arthritis M19.90 Deuce Lyon MD [address] [place] [id number] 04/12/2024 Deuce Lyon Prediabetes R73.09 ; Cervical disc disease M50.90 and Pure hypercholesterolemia E78.00 Deuce Lyon MD [address] [place] [id number] 10/02/2024 Deuce Lyon Bitten or stung by nonvenomous insect and other nonvenomous arthropods, initial encounter W57.XXXA Assessments Encounter Date Diagnosis (ICD Code) Assessment Notes Treatment Notes Treatment Clinical Notes Section Notes 04/06/2024 Prediabetes (ICD-10 - R73.09) 04/06/2024 Pure hypercholesterolemia (ICD-10 - E78.00) 10/02/2024 Prediabetes (ICD-10 - R73.09) 10/06/2023 Mild intermittent as thma without complication (ICD-10 - J45.20) doing well on inhaler 04/12/2024 Prediabetes (ICD-10 - R73.09) a1c is down 04/12/2024 Cervical disc diseas e (ICD-10 - M50.90) has a little less strength on left 10/02/2024 Bitten or stung by nonvenomous insect and other nonvenomous arthropods, initial encounter (ICD-10 - W57.XXXA) 10/02/2024 Pure hypercholesterolemia (ICD-10 - E78.00) 10/06/2023 Pure hypercholesterolemia (ICD-10 - E78.00) doing well on meds 04/12/2024 Pure hypercholesterolemia (ICD-10 - E78.00) good values 10/02/2024 Type 2 diabetes suni itus without complication, without long-term current use of insulin (ICD-10 - E11.9) 10/06/2023 Insect bite (nonvenomous) of abdominal wall, initial encounter (ICD-10 - S30.861A) 10/02/2024 Essential hypertensi on (ICD-10 - I10) 10/06/2023 Bitten or stung by nonvenomous insect and other nonvenomous arthropods, initial encounter (ICD-10 - W57.XXXA) 10/06/2023 Type 2 diabetes suni itus without complication, without long-term current use of insulin (ICD-10 - E11.9) 10/06/2023 Essential hypertensi on (ICD-10 - I10) 10/06/2023 Reflux esophagitis (ICD-10 - K21.00) 10/06/2023 Arthritis (ICD-10 - M19.90) stable, willc ntiue current regiment 10/06/2023 Other needs to diet and exercise Plan Of Treatment Pending Test Test Name Order Date Complete Blood Count Auto Diff 5 Comprehensive [place]. Panel Fast 5 Lipid Panel 10/02/2024 PSA,Total (Free>4and<10) 10/02/2024 Microalbumin, Random 10/02/2024 Hemoglobin A1c 10/02/2024 UA ClnCatch+Micro w/rflx Cult 10/02/2024 Next Appt Details Provider Name:Deuce Luis ier, 10/09/2024 01:30:00 PM, [address] [place] [address], [address], [place], [place], [phone], Insurance Providers Payer Name Payer Address Payer Phone Subscriber Number Group Number Insured Name Patient Relationship to Insured Coverage Start Date Coverage End Date [employer] [address] [place] [address] [id number] Shashank Cody Self - patient is the insured 9 [employer] [place] [address] [place] [address] [id number] Shashank Cody Self - patient is the insured 9 Medical (General) History Medical History History ICD Code cystoscopy ad ct all neg for hematuria 2 015 Current smoker F17.200 colonosopy 2020 repeat in 10 years colonoscopy do0ne in 2020 repeat in 10 y ears
[2024-10-02 12:09] LABS: Microalbum/Creatinine Ratio Ur 7.2 ug/mg cr (<30)
--- OUTSIDE RECORDS SUMMARY | 2024-10-02 12:09 | XMS_ITS ---
Author Organization Deuce Lyon MD Address [address] [place] [phone] Care Team Providers Care Cna Gna Name Role Phone Deuce Lyon Primary Care Provider Allergies Allergen (clinical drug ingredient) Drug/Non Drug Allergy documented on EMR Reaction Allergy Type Onset Date Status metformin Metformin diarrhea Drug Allergy Active Levaquin nausea and felt faint Drug Allergy Active REASON FOR VISIT 6 MO F/U Medications Medication SIG (Take, Route, Frequency, Duration) Notes Start Date End Date Status Albuterol Sulfate 0.63 MG/3ML as directed Inhalation every 6 hrs for 14 days 12/05/2018 Not-Udayi ng Align 4 MG as directed Orally Active Albuterol Sulfate (2.5 MG/3ML) 0.083% 3 ml Inhalation Three times a day for 14 days 02/25/2017 Not-Guille ng Clobetasol Propionate 0.05 % 1 application to affected area Externally Twice a day for 30 days 12/30/2014 Active LORazepam 0.5 MG 1 tablet as needed Orally Twice a day 06/16/2015 Not-Taking Lisinopril 10 MG TAKE 1 TABLET BY BRITNEY TH EVERY DAY for 90 Active Doxycycline Hyclate 20 MG 1 tablet Orall y Twice a day Not-Taking ProAir HFA 108 (90 Base) MCG/ACT 2 puffs as needed Inhalation every 4 hrs Active Atorvastatin Calcium 40 MG 1 tablet Orally Once a day 04/01/2022 Active Omeprazole 20MG TAKE 1 CAPSULE ONCE DAILY Active Doxycycline Hyclate 100 MG 1 capsule Orally Twice a day for 1 days 10/06/2023 Active Celecoxib 200 MG TAKE 1 CAPSULE EVERY OTHER DAY for 90 Active Gabapentin 300 MG TAKE 1 CAPSULE TWICE DAILY for 90 Active Vital Signs Blood pressure systolic 148 mm Hg 04/12/20 24 Blood pressure diastolic 80 mm Hg 024 Height 63 in 04/12/2024 Weight 218 lbs 04/12/2024 BMI 38.61 kg/m2 04/12/2024 Encounters Encounter Location Date Provider Diagnosis Deuce Lyon MD [address] [place] [address] Drive [address] [place] [phone] 04/12/2024 Deuce Lyon Prediabetes R73.09 ; Cervical disc disease M50.90 and Pure hypercholesterolemia E78.00 Assessments Encounter Date Diagnosis (ICD Code) Assessment Notes Treatment Notes Treatment Clinical Notes Section Notes 04/12/2024 Prediabetes (ICD-10 - R73.09) a1c is down 04/12/2024 Cervical disc diseas e (ICD-10 - M50.90) has a little less strength on left 04/12/2024 Pure hypercholesterolemia (ICD-10 - E78.00) good values Plan Of Treatment Treatment Notes Assessment Notes Prediabetes a1c is down Cervical disc disease has a little less strength on left Pure hypercholesterolemia good values Next Appt Details Follow Up: 6 Months, Reason: Provider Name:Deuce thomas, 10/09/2024 01:30:00 PM, [address], Suite [facility], [place], [place], [phone], Progress Notes * Shashank ARROYO WDOB:[birth year] (73 yo M)Acc No.[id number]:04/12/2024 Progress Notes Patient:?Shashank Arroyo Provider:?Deuce Lyon MD :1950???Age:73 Y???Sex:Male Bert e:04/12/2024 Address:[address], [id number] Subjective: * Chief Complaints: * ???6 MO F/U * HPI: ???Symptom(s):? pt is a 73 yo male here for follow up of dm and back pain. * ROS:?General/Constitutional:?Denies?Chills.?Denies?Fatigue.?Denies?Fever.?Denies?Headache.?ENT:?Denies?Sore throat.?Respiratory:?Denies?Cough.?Denies?Shortness of breath at rest.?Denies?Shortness of breath with exertion.?Gastrointestinal:?Denies?Diarrhea.?Denies?Nausea.? * Medical History:? * Surgical History:? * Hospitalization/Major Diagno stic Procedure:? * Medications:?TakingAlign 4 M G Capsule as directed Orally Clobetasol Propionate 0.05 % Cream 1 application to affected area Externally Twice a dayCelecoxib 200 MG Capsule TAKE 1 CAPSULE EVERY OTHER DAY Gabapentin 300 MG Capsule TAKE 1 CAPSULE TWICE DAILY Doxycycline Hyclate 100 MG Capsule 1 capsule Orally Twice a dayOmeprazole 20MG Capsule Delayed Release TAKE 1 CAPSULE ONCE DAILY ProAir HFA 108 (90 Base) MCG/ACT Aerosol Solution 2 puffs as needed Inhalation every 4 hrsAtorvastatin Calcium 40 MG Tablet 1 tablet Orally Once a dayLisinopril 10 MG Tablet TAKE 1 TABLET BY MOUTH EVERY DAY Taking Align 4 MG Capsule as directed Orally Taking Clobetasol Propionate 0.05 % Cream 1 application to affected area Externally Twice a dayTaking Celecoxib 200 MG Capsule TAKE 1 CAPSULE EVERY OTHER DAY Taking Gabapentin 300 MG Capsule TAKE 1 CAPSULE TWICE DAILY Taking Doxycycline Hyclate 100 MG Capsule 1 capsule Orally Twice a dayTaking Omeprazole 20MG Capsule Delayed Release TAKE 1 CAPSULE ONCE DAILY Taking ProAir HFA 108 (90 Base) MCG/ACT Aerosol Solution 2 puffs as needed Inhalation every 4 hrsTaking Atorvastatin Calcium 40 MG Tablet 1 tablet Orally Once a dayTaking Lisinopril 10 MG Tablet TAKE 1 TABLET BY MOUTH EVERY DAY Not- Taking/PRNDoxycycline Hyclate 20 MG Tablet 1 tablet Orally Twice a dayAlbuterol Sulfate 0.63 MG/3ML Nebulization Solution as directed Inhalation every 6 hrsAlbuterol Sulfate (2.5 MG/3ML) 0.083% Nebulization Solution 3 ml Inhalation Three times a dayLORazepam 0.5 MG Tablet 1 tablet as needed Orally Twice a dayMedication List reviewed and reconciled with the patientNot-Taking/PRN Doxycycline Hyclate 20 MG Tablet 1 tablet Orally Twice a dayNot-Taking/PRN Albuterol Sulfate 0.63 MG/3ML Nebulization Solution as directed Inhalation every 6 hrsNot-Taking/PRN Albuterol Sulfate (2.5 MG/3ML) 0.083% Nebulization Solution 3 ml Inhalation Three times a dayNot-Taking/PRN LORazepam 0.5 MG Tablet 1 tablet as needed Orally Twice a dayMedication List reviewed and reconciled with the patient * Allergies:?Levaquin: nausea and felt faintMetformin: diarrheayes[Allergies Verified] Objective: * Vitals:?Ht: 63, Wt:218, BMI: 38.61, BP:148/80. * ???Past Orders: ???Lab:Lipid Panel with Refl ex (Order Date - 04/06/2024) (Collection Date - 04/06/2024) ? Value Reference Range ?Triglycerides 150 H <150 - mg/dL ?Cholesterol 142 <200 - m g/dL ?LDL Cholesterol Calculated 67 <100 - mg/dL ?HDL Cholesterol 45 >40 - mg/dL ???Lab:Hemoglobin A1c (Order Date - 04/06/2024) (Collection Date - 04/06/2024) ? Value Reference Range ?Hemoglobin A1c % 5.9 <6. 0 - % ?Estimated Average Glucose 123 - mg/dL ???Lab:Liver Panel (Order Da te - 04/06/2024) (Collection Date - 04/06/2024) ? Value Reference Range ?Bilirubin Total 0.5 0.0- 1.0 - mg/dL ?Bilirubin Direct 0.2 0.0 -0.5 - mg/dL ?Aspartate Amino Transferase 46 H 5-37 - U/L ?Alanine Aminotransferase 36 0-40 - U/L ?Total Protein 7.3 6.5-8. 0 - g/dL ?Albumin Level 4.6 3.5-5. 0 - g/dL ?Alkaline Phosphatase 81 39-117 - U/L ???Lab:Glucose Fasting (Orde r Date - 04/06/2024) (Collection Date - 04/06/2024) ? Value Reference Range ?Glucose Fasting 115 H 60-9 9 - mg/dL * Examination: ???General Examination: ?GENERAL APPEARANCE:?alert, well hydrated, in no distress.?HEAD:?normocephalic.?SKIN:?good turgor.?HEART:?regular rate and rhythm , no murmurs, rubs, gallops.?LUNGS:?clear to auscultation bilaterally , good air movement , no wheezes, rales, rhonchi.? Assessment: * Assessment: 1.?Prediabetes - R73.09?2.?C ervical disc disease - M50.90?3.?Pure hypercholesterolemia - E78.00? Plan: * Treatment: 2.?Cervical disc disease? Notes: has a little less strength on left?? 3.?Pure hypercholesterolemia ? Notes: good values?? * Procedure Codes:? * Follow Up:?6 Months * * Sign off status: Completed true * Provider:?Deuce Lyon MD Date:?1 06/12/2023 Generated for Ricco peck/Manjinder/eTransmitting on:?10/02/2024 12:08 PM EDT History and Physical Notes * HPI (History of Present Illness) Category Sub-Category Detail Notes Category Not es Symptom(s) pt is a 73 yo m riaz here for follow up of dm and back pain Examination Category Sub-Category Detail Notes Category Not es General Examination GENERAL APPEARANCE: alert, w ell hydrated, in no distress HEAD: normocephalic HEART: regular rate and rhy thm , no murmurs, rubs, gallops LUNGS: clear to auscultatio n bilaterally , good air movement , no wheezes, rales, rhonchi SKIN: good turgor
[2024-10-02 12:38] LABS: Alkaline Phosphatase 72 U/L (39-117)
== END 2024-10-02 10:45 | disposition home or self-care (01) ==
LOC: HO.LNP 10:44
PROVIDERS: Visit Provider Internal Medicine
DX: Z12.5 Encounter for screening for malignant neoplasm of prostate (principal); E78.00 Pure hypercholesterolemia, unspecified; E11.9 Type 2 diabetes mellitus without complications; I10 Essential (primary) hypertension
CPT/HCPCS: 80053; 80061; 81001; 82043; 82570; 83036; 84153; 85025

== ENCOUNTER 2025-04-05 11:21 | Outpatient (REF) | payer MEDICARE, SELFPAY ==
[2025-04-05 11:48] LABS: Alanine Aminotransferase 26 U/L (0-40); Albumin Level 4.8 g/dL (3.5-5.0); Alkaline Phosphatase 71 U/L (39-117); Aspartate Amino Transferase 38 U/L (5-37); Cholesterol 137 mg/dL (<200); HDL Cholesterol 44 mg/dL (>40); Total Protein 7.2 g/dL (6.5-8.0); Triglycerides 178 mg/dL (<150)
[2025-04-05 12:14] LABS: Reflex LDLD? No
== END 2025-04-05 11:22 | disposition home or self-care (01) ==
LOC: HO.LNP 11:21
PROVIDERS: Visit Provider Internal Medicine
DX: R73.09 Other abnormal glucose (principal); E78.00 Pure hypercholesterolemia, unspecified
CPT/HCPCS: 80061; 80076; 82947; 83036